=== PATIENT | male | born 1960 | race Caucasian/White ===

== ENCOUNTER 2017-09-05 14:21 | Emergency (ER) | payer OTHER ==
[~2017-09-05] VITALS: Ht 175.3 cm; Wt 88.5 kg
[2017-09-05] MEDS ORDERED: TYLENOL WITH C1 EACH PO (15:13)
[2017-09-05] MEDS ORDERED: ROBAXIN-750750 MG PO (15:13)
[2017-09-05] MEDS ORDERED: IBUPROFEN400 MG PO (15:13)
[2017-09-05 15:24] VITALS: BP 152/82
== END 2017-09-05 15:20 | disposition home or self-care (01) ==
LOC: FSED 14:21
DX: R07.89 Other chest pain (principal); S22.31XA Fracture of one rib, right side, initial encounter for closed fracture; S20.221A Contusion of right back wall of thorax, initial encounter; S30.1XXA Contusion of abdominal wall, initial encounter; W01.198A Fall on same level from slipping, tripping and stumbling with subsequent striking against other object, initial encounter; Y92.008 Other place in unspecified non-institutional (private) residence as the place of occurrence of the external cause; I10 Essential (primary) hypertension; E78.5 Hyperlipidemia, unspecified
CPT/HCPCS: 99282